=== PATIENT | female | born 1980 | race African-American/Black ===

== ENCOUNTER → 2018-08-29 | Outpatient (REF) | payer BC ==
[~2018-08-29] MED LIST: ADVAIR HF1 IN; BENAZEPRIL10 M1 PO; DIFLUCAN100 MG OR; DOXYCYC MONO100 MG OR; LUPRON DEPOT3.75 MG IM; METHYLDOPA250 MG PO; NO MEDS; PROAIR HFA IN
== END | disposition home or self-care (01) | DRG 305 ==
LOC: ULTRASND 08:00
PROVIDERS: ATTEND Internal Medicine
DX: I10 Essential (primary) hypertension (principal)

== ENCOUNTER → 2018-09-02 | Outpatient (REF) | END | disposition home or self-care (01) | DRG 305 | LOC: LAB 07:58 | PROVIDERS: ATTEND Internal Medicine | DX: I16.0 Hypertensive urgency (principal) ==

== ENCOUNTER → 2018-09-12 | Outpatient (REF) | payer BC | END | disposition home or self-care (01) | DRG 833 | LOC: ULTRASND 08:11 | DX: O36.80X9 Pregnancy with inconclusive fetal viability, other fetus (principal); Z34.00 Encounter for supervision of normal first pregnancy, unspecified trimester ==